=== PATIENT | female | born 1990 | race African-American/Black ===

== ENCOUNTER 2016-09-21 12:08 | Inpatient (IN) ==
[2016-09-21] MEDS ORDERED: SODIUM CHLORIDE 0.9% 1,000 ML IV STA (12:42)
[2016-09-21] MEDS ORDERED: ONDANSETRON 4 MG/2 ML VIAL IV STA (13:03)
[2016-09-21 13:04] LABS: Basophils % 0.5 % (0.0-0.8); Eosinophils % 0.5 % (0.00-10.9); Hemoglobin 14.3 GM/DL (12.0-16.0); Immature Granulocytes % 0.2 %; Immature Granulocytes Absolute 0.01 #; Lymphocytes % 32.8 % (21.3-54.2); Mean Corpuscular Hemoglobin 30 PG (27-34); Mean Corpuscular Volume 88.4 FL (87-102); Mean Platelet Volume 10.4 FL (9.6-12.0); Monocytes # 0.9 10*3/uL (0.11-0.8); Monocytes % 14.4 % (1.7-12.7); Neutrophils # 3.2 10*3/uL (1.4-7.4); Neutrophils % 51.6 % (38.7-73.9); Platelet Count 330 10*3/uL (130-400); Red Blood Count 4.75 10*6/uL (3.8-5.5); Red Cell Distribution Width 13.2 % (9.3-17.3); White Blood Count 6.1 10*3/uL (4.5-13.71)
[2016-09-21] MEDS ORDERED: ONDANSETRON 4 MG/2 ML VIAL ONE (13:04)
[2016-09-21 13:20] LABS: PT Patient Result 10.1 SECS; Partial Thromboplastin Time 29.7 SECS (0-40)
[2016-09-21 13:26] LABS: Albumin 3.6 G/DL (3.4-5.0); Bilirubin,Total 6.5 MG/DL (0.2-1.0); Calcium 8.9 MG/DL (8.5-10.1); Lactic Acid 0.7 MMOL/L (0.4-2.0); Osmolality,Calculated 278.3 MOS/KG (273-304); Potassium 3.5 MMOL/L (3.5-5.1); Total Protein 8.5 G/DL (6.4-8.3)
--- NOTE | 2016-09-21 13:46 | Ultrasound Report ---
History is abdominal pain and jaundice There is gallbladder sludge with multiple small gallstones present. Gallbladder wall thickness is normal Common bile duct measures up to 8 mm. The distal common bile duct is obscured by bowel gas Hepatic size and echotexture is normal No right renal hydronephrosis seen The visualized pancreas and proximal IVC and aorta are normal in size. Portions of pancreatic head and tail obscured by bowel gas Impression: 1. Cholelithiasis 2. Dilatation of the common bile duct for a patient of this age raising question of distal common duct stone. The distal common duct is obscured. Correlation with laboratory values is necessary PROCEDURE INTERPRETED AT [facility] DEPARTMENT OF RADIOLOGY Final Report Signed by: Dr. Alyse Arreola
[2016-09-21 14:01] LABS: Apearance,Urine CLEAR (Clear); Bilirubin,Urine Negative (Negative); Blood, Urine Moderate mg/dL (Negative); Glucose,Urine (UA) Negative (Negative); Ketones,Urine Negative (Negative); Nitrite,Urine Negative (Negative); Protein,Urine Negative; RBC,Urine <1 /HPF (0-4); Squamous Epithelial Cell,Urine Occasional /HPF (0-10); Urine Color Yellow (Yellow); Urine Specific Gravity 1.009 (1.001-1.035); Urine Urobilinogen < 2.0 EU/DL (0.2-1.0); WBC,Urine 1 /HPF (0-6)
[2016-09-21 14:11] LABS: Barbiturates Screen,Urine Negative (Negative); Benzodiazepines Screen,Urine Negative (Negative); Cannabinoid Screen,Urine Negative (Negative); Opiate Screen,Urine Negative (Negative); Phencyclidine Screen,Urine Negative (Negative)
[2016-09-21] MEDS ORDERED: MORPHINE 2 MG/1 ML SYRINGE IV STA (16:52)
--- NOTE | 2016-09-21 16:57 | Emergency Department Note ---
Cristobal Hoskins Brittany, am scribing for, and in the presence of, Jorge A Taylor Jr., MD 12:46. Brandon Hoskins Marvin Jr., MD, personally performed the services described in this documentation, ascribed by Allyn Jain in my presence, and it is both accurate and complete [id number] . 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 Mejia's office for having abnormal lab work, states her liver enyzmes were elevated, states " my eyes were yellow" , patient has no lab work with her at time of triage, patient is hurting in entire abd., + nausea Mode of Arrival: Ambulatory Limitations: No Limitations Source: Patient, RN Notes Reviewed - History of Present Illness HPI Narrative: Patient is a 25 y/o black female presenting to the ED for further evaluation of elevated liver enzymes. Patient reports that she has been having abdominal pain for about a month now and went to see primary care provider, Dr. Mejia this morning. She notes that Dr. Mejia called her and instructed her to present to the ED because she had elevated liver enzymes. Patient describes abdominal pain at current, as a mild sharp pain that begins in the right upper abdomen, "shooting" into the lower abdomen and left upper abdomen, radiating into her back. Patient notes having some associated nausea, vomiting, and intermittent diarrhea with this. Patient reports that she has had fever, but notes last fever was about a week ago and was 101 at the highest, but has had none at present. Patient reports taking Aspirin, but denies taking any Tylenol. Patient denies use of alcohol, tobacco, or recreational drugs. Patient has a past medical history of hypertension and dyslipidemia. No other complaint/pain in the ED. Date of Last Menstrual Period: 1 week ago Allergies/Adverse Reactions: Allergies Allergy/AdvReac Type Severity Reaction Status Date / Time penicillin G Allergy RASH Verified 09/21/16 12:24 Home Medications: Home Medications Medication Instructions Recorded Confirmed Type Losartan/Hydrochlorothiazide 1 each PO DAILY 04/14/16 09/21/16 History [Losartan-Hctz 100-25 mg Tab] Review of System - Review of System 12 point system: reviewed and no additional remarkable complaints except as stated - Review of System Constitutional: Present: fever Gastrointestinal: Present: abdominal pain, nausea, vomiting, diarrhea Medical,Surgical,& Family Hx - Medical History Cardio: History of: Hypertension Endocrine: History of: Dyslipidemia Gastrointestinal: History of: GI Problems (peptic ulcer disease) Reproductive: History of: Ovarian Cysts - Surgical History Reproductive Surgeries: Surgical HX of;: Section - Social History Smoking Status: Never smoker Frequency of Alcohol Use: None Type of Drug Use: None Exam Physical Examination: General: Well-developed well-nourished, no apparent distress. Head: Normocephalic, atraumatic. Eyes: PERRLA, EOMI. sclera icterus noted Nose: No obvious acute deformities or discharge. Mouth: No obvious acute injury. Neck: Full range of motion without obvious pain. No midline tender to palpation. Lymphatic: no significant lymphadenopathy noted. Lungs: Clear to auscultation bilaterally, normal and equal air movement bilaterally, no obvious rales or wheezing. Heart: regular rate and rhythm, no obvious mummers. Abdomen: Right upper quadrant with moderate tender to palpation nondistended, normal active bowel sounds. Skin: No obivous acute lesions noted Musculoskeletal: No gross deformities. Neurological: No focal findings, cranial nerves II through XII grossly normal. Psychiatric: Appropriate mood.. : Deferred Vital Signs: Vital Signs Temperature 97.5 F L 09/21/16 12:20 Pulse Rate 64 09/21/16 13:15 Respiratory Rate 20 09/21/16 12:20 Blood Pressure 177/111 09/21/16 13:15 O2 Sat by Pulse Oximetry 99 09/21/16 13:15 Course Course Narrative: Differential diagnosis: Liver failure secondary to medication, cirrhosis, idiopathic, gallbladder disease, mass - Reevaluation(s) Reevaluation #1: Discussed with Dr. Nguyen who accepts this patient for admission. He says keep her n.p.o., IV fluids, pain medicine, no antibiotics needed at this time. Time: 16:50 Results - Labs CBC & BMP: 09/21/16 13:00 09/21/16 13:00 Lab Results: I have reviewed the patients labs Labs: Laboratory Tests 09/21/16 13:00 WBC 6.1 RBC 4.75 Hgb 14.3 Hct 42.0 MCV 88.4 MCH 30 MCHC 34.0 RDW 13.2 Plt Count 330 MPV 10.4 Neut % (Auto) 51.6 Lymph % (Auto) 32.8 Marshall % (Auto) 14.4 H Eos % (Auto) 0.5 Baso % (Auto) 0.5 Neut # (Auto) 3.2 Lymph # (Auto) 2.0 Marshall # (Auto) 0.9 H Eos # (Auto) 0.0 Baso # (Auto) 0.0 Immature Gran % 0.2 Nucleated RBC % 0.0 Immature Gran # 0.01 Nucleated RBCs # 0.00 Laboratory Tests 09/21/16 13:00 INR 1.0 PT Patient/Control Mix 10.1 Circ Anticoag PTT 29.7 Laboratory Tests 09/21/16 09/21/16 13:00 13:00 Sodium 141 Potassium 3.5 Chloride 105 Carbon Dioxide 28 Anion Gap 11.5 BUN 7 Creatinine 0.90 GFR Calculation 119 BUN/Creatinine Ratio 7.00 Glucose 90 Calculated Osmolality 278.3 Lactic Acid 0.7 Calcium 8.9 Total Bilirubin 6.50 H AST 210 H ALT 533 H Alkaline Phosphatase 127 H Total Protein 8.5 H Albumin 3.6 Globulin 4.9 H Albumin/Globulin Ratio 0.7 L Lipase 23488.0 H Laboratory Tests 09/21/16 12:46 Urine Color Yellow Urine Appearance Clear Urine pH 7.0 Ur Specific Ulman 1.009 Urine Protein Negative Urine Glucose (UA) Negative Urine Ketones Negative Urine Blood Moderate Urine Nitrate Negative Urine Bilirubin Negative Urine Urobilinogen < 2.0 H Urine Leukocytes Negative Urine RBC <1 Urine WBC 1 Ur Squamous Epith Cells Occasional Laboratory Tests 09/21/16 12:46 Urine Opiates Screen Negative Ur Barbiturates Screen Negative Ur Phencyclidine Scrn Negative U Amphetamine/Methamph Negative U Benzodiazepines Scrn Negative U Cocaine Metab Screen Negative U Cannabinoids Screen Negative - Diagnostic Findings Procedure: Ultrasound: report reviewed by me, image reviewed by me (Gallbladder : 1. Cholelithiasis; 2. Dilation of the common bile duct for a patient this age raising question of distal common duct stone. The distal common duct is obscurred. Correlation with laboratory values is necessary. I personally reviewed this ultrasound also) Disposition Clinical Impression: Cholelithiasis, Gallstone pancreatitis Case discussed with: patient, patient's family Disposition: Still a Patient Condition: Stable Time of Disposition: 16:51
--- NOTE | 2016-09-21 18:02 | General Surg History&Physical ---
Assessment and Plan (1) Cholelithiasis Status: Acute Assessment and plan: This patient has cholelithiasis and gallstone pancreatitis. She will be admitted for IV fluids, bowel rest, and trending her of her LFTs. I'll also place her on Zosyn because of her tenderness on exam and concern for cholecystitis. I discussed her care with Dr. Busch who is on-call this weekend and I would prefer a preoperative ERCP on her given her bile duct dilation in elevation of her bilirubin but we will try to wait for her pancreatitis resolved with possible prior to doing any procedures. She is stable and has no evidence of cholangitis. Current Visit: Yes History of Present Illness Chief complaint: abdominal pain History of present illness: Ms. Gaston is a 25 year old female who has had one month of right upper quadrant midepigastric pain that radiates through the back with associated nausea and vomiting. Her eyes also turned yellow and she reports some acholic stools or tea-colored urine over the past week. She denies any history of alcohol use. She does have a history of reflux and has had an esophageal dilation done by Dr. Busch in the past and the last one was a while ago. She has a bilirubin of 6.5 with a normal white blood cell count a lipase of 13, 000 with stones on her ultrasound and dilation of her bile duct. Home Medications Medication Instructions Recorded Confirmed Type Losartan/Hydrochlorothiazide 1 each PO DAILY 04/14/16 09/21/16 History [Losartan-Hctz 100-25 mg Tab] Allergies Allergy/AdvReac Type Severity Reaction Status Date / Time penicillin G Allergy RASH Verified 09/21/16 12:24 Medical,Surgical,& Family Hx - Medical History Cardio: History of: Hypertension Endocrine: History of: Dyslipidemia Gastrointestinal: History of: GI Problems (peptic ulcer disease) Reproductive: History of: Ovarian Cysts - Surgical History Reproductive Surgeries: Surgical HX of;: Section - Social History Smoking Status: Never smoker Frequency of Alcohol Use: None Type of Drug Use: None Exam - Constitutional General appearance: no acute distress, morbidly obese - Head Head exam: Present: normal inspection, normocephalic - Eye Eye exam: Present: EOMI, scleral icterus Pupils: Present: LILIANE - ENT ENT exam: Present: normal exam Mouth exam: Present: normal external inspection, normal voice - Neck Neck exam: Present: normal inspection, trachea midline - Respiratory Respiratory exam: Present: clear to auscultation bilaterally. Absent: accessory muscle use, chest wall tenderness - Cardiovascular Cardiovascular exam: Present: RRR. Absent: systolic murmur, tachycardia - GI/Abdominal GI/Abdominal exam: Present: normal bowel sounds, Rust's sign, tenderness, soft. Absent: rebound - Extremities Exam Extremities exam: Present: normal inspection, normal capillary refill - Back Exam Back exam: Present: normal inspection - Neurological Exam Neurological exam: Present: alert, oriented X3 Speech: Present: normal - Skin Skin exam: Present: normal color, warm - Constitutional Constitutional: Present: as per HPI - EENT Nose, mouth and throat: Present: as per HPI - Cardiovascular Cardiovascular: Present: as per HPI - Respiratory Respiratory: Present: as per HPI - Gastrointestinal Gastrointestinal: Present: as per HPI - Genitourinary Genitourinary: Present: as per HPI - Musculoskeletal Musculoskeletal: Present: as per HPI - Neurological Neurological: Present: as per HPI - Endocrine Endocrine: Present: as per HPI Hematologic/Lymphatic: Present: as per HPI Results - Labs CBC & BMP: 09/21/16 13:00 09/21/16 13:00 - Diagnostic Findings Procedure: Ultrasound: report reviewed by me
[2016-09-21] MEDS: PIPERACILLIN/TAZOBACTAM 3,375 MG in SODIUM CHLORIDE 0.9% 100 ML IV SCH (20:45)
[2016-09-21] MEDS: MORPHINE 2 MG/1 ML SYRINGE IV PRN (20:46)
[2016-09-21] MEDS: DEXTROSE 5% NACL 0.45% 1,000 ML IV SCH (20:51)
[2016-09-21] MEDS: ONDANSETRON 4 MG/2 ML VIAL IV PRN (21:37)
[2016-09-22 03:37] LABS: Basophils % 0.5 % (0.0-0.8); Eosinophils # 0.1 10*3/uL (0.0-0.87); Eosinophils % 0.8 % (0.00-10.9); Hematocrit 40.3 VOL% (35.7-47.0); Hemoglobin 13.4 GM/DL (12.0-16.0); Immature Granulocytes % 0.3 %; Immature Granulocytes Absolute 0.02 #; Lymphocytes # 2.5 10*3/uL (1.4-4.0); Lymphocytes % 42.2 % (21.3-54.2); Mean Corpuscular HGB Conc 33.3 GM/DL (32-36); Mean Corpuscular Hemoglobin 29 PG (27-34); Mean Corpuscular Volume 88.4 FL (87-102); Mean Platelet Volume 10.3 FL (9.6-12.0); Monocytes # 0.9 10*3/uL (0.11-0.8); Monocytes % 14.6 % (1.7-12.7); Neutrophils # 2.5 10*3/uL (1.4-7.4); Neutrophils % 41.6 % (38.7-73.9); Platelet Count 291 10*3/uL (130-400); Red Blood Count 4.56 10*6/uL (3.8-5.5); Red Cell Distribution Width 13.1 % (9.3-17.3)
[2016-09-22 03:46] LABS: PT Patient Result 10.5 SECS; Partial Thromboplastin Time 30.6 SECS (0-40)
[2016-09-22] MEDS: DEXTROSE 5% NACL 0.45% 1,000 ML IV SCH ×3 (04:05→20:30)
[2016-09-22 04:11] LABS: Albumin 3.2 G/DL (3.4-5.0); Bilirubin,Direct 1.8 MG/DL (0.0-0.20); Bilirubin,Total 3.9 MG/DL (0.2-1.0); Calcium 8.4 MG/DL (8.5-10.1); Osmolality,Calculated 279.1 MOS/KG (273-304); Potassium 3.3 MMOL/L (3.5-5.1); Total Protein 7.1 G/DL (6.4-8.3)
[2016-09-22] MEDS: PIPERACILLIN/TAZOBACTAM 3,375 MG in SODIUM CHLORIDE 0.9% 100 ML IV SCH ×3 (05:00→20:27)
[2016-09-22] MEDS: LOSARTAN/HCTZ 50-12.5 MG TABLET PO SCH (10:08)
--- NOTE | 2016-09-22 13:15 | General Surgery Progress Note ---
Assessment and Plan (1) Cholelithiasis Status: Acute Assessment and plan: This patient has biliary pancreatitis and suspected choledocholithiasis. Her labs are improving so we will give her clear liquids today and trend her lab work over the weekend. I would prefer an ERCP prior to laparoscopic cholecystectomy to clear her bile duct of Dr. Busch agrees that this is indicated. Current Visit: Yes Subjective Patient reports: Present: no new complaints, feels better, still having pain, pain is less, afebrile. Absent: nausea, vomiting, shortness of breath Exam - Constitutional Vitals: Period Temp Pulse Resp BP Sys/Corbett Pulse Ox Last 24 Hr 97.9 F-98.6 F 50-78 16-20 114-145/62-86 96-100 General appearance: no acute distress, morbidly obese - Head Head exam: Present: normal inspection, normocephalic - Eye Eye exam: Present: EOMI, scleral icterus Pupils: Present: LILIANE - ENT ENT exam: Present: normal exam Mouth exam: Present: normal external inspection, normal voice - Neck Neck exam: Present: normal inspection, trachea midline - Respiratory Respiratory exam: Present: clear to auscultation bilaterally. Absent: accessory muscle use, chest wall tenderness - Cardiovascular Cardiovascular exam: Present: RRR. Absent: systolic murmur, tachycardia - GI/Abdominal GI/Abdominal exam: Present: tenderness (mild mid-abdominal tenderness on exam), soft - Extremities Exam Extremities exam: Present: normal inspection, normal capillary refill - Back Exam Back exam: Present: normal inspection - Neurological Exam Neurological exam: Present: alert, oriented X3 Speech: Present: normal - Skin Skin exam: Present: normal color, warm Results - Labs CBC & BMP: 09/22/16 03:06 09/22/16 03:06
--- NOTE | 2016-09-22 14:47 | Gastrointestinal Consult Note ---
Assessment and Plan (1) Gallstone pancreatitis Status: Acute Assessment and plan: Young female admitted with gallstone pancreatitis which clinically does not appear to be severe at present. She has no signs of cholangitis currently. Plan ERCP with possible common bile duct sphincterotomy and stone removal dependent on findings. Discussed procedure with her and family today. Would plan to do this tomorrow or Saturday. Keep her n.p.o. after midnight tonight. Current Visit: Yes History of Present Illness Chief complaint: Abdominal pain History of present illness: Ms. Gaston is a 25 year old female admitted with gallstone pancreatitis. She she is admitted after onset of upper abdominal pain radiating into her mid back 2 days ago which was severe. She states that she has had similar intermittent pain for over a month with associated nausea. Her weight has been stable. On admission, she had elevated liver tests with total bilirubin 6.5 and dilated common bile duct noted on ultrasound imaging with cholelithiasis also noted. Her lipase was markedly elevated also. Today, her pain is improved though still present off and on. She states that she has not required any pain medication today. Total bilirubin has fallen to 3.9 with transaminases also improved. Home Medications Medication Instructions Recorded Confirmed Type Losartan/Hydrochlorothiazide 1 each PO DAILY 04/14/16 09/22/16 History [Losartan-Hctz 100-25 mg Tab] Allergies Allergy/AdvReac Type Severity Reaction Status Date / Time penicillin G Allergy RASH Verified 09/21/16 12:24 Medical,Surgical,& Family Hx - Medical History Cardio: History of: Hypertension Psychological: History of: Bipolar Disorder (does not take medications for this) Endocrine: History of: Dyslipidemia Respiratory: History of: Respiratory Problems (sleep apnea) Gastrointestinal: History of: GI Problems (peptic ulcer disease) Musculoskeletal: History of: Herniated Disk Reproductive: History of: Ovarian Cysts - Surgical History Reproductive Surgeries: Surgical HX of;: Section - Family History Family History: Reports;: Family Cancer (grandmother), Family Diabetes (mother, grandmother), Family Hypertension (mother, aunt), Family Stroke (grandfather) - Social History Smoking Status: Never smoker Frequency of Alcohol Use: None Type of Drug Use: None - Constitutional Constitutional: Absent: chills, fever(s) - EENT Nose, mouth and throat: Absent: dysphagia, epistaxis - Cardiovascular Cardiovascular: Absent: chest pain at rest, chest pain with activity, orthopnea , palpitations, PND - Respiratory Respiratory: Absent: cough, dyspnea - Gastrointestinal Gastrointestinal: Present: as per HPI. Absent: hematemesis, hematochezia - Genitourinary Genitourinary: Absent: dysuria, flank pain, hematuria - Neurological Neurological: Absent: abnormal speech, focal weakness - Hematologic/Lymphatic Hematologic/Lymphatic: Absent: easy bleeding, easy bruising Exam - Constitutional Vitals: Period Temp Pulse Resp BP Sys/Corbett Pulse Ox Last 24 Hr 97.9 F-98.6 F 50-78 16-20 114-145/62-86 96-100 General appearance: no acute distress, over weight - Eye Eye exam: Present: EOMI, scleral icterus - Respiratory Respiratory exam: Present: clear to auscultation bilaterally. Absent: wheezes - Cardiovascular Cardiovascular exam: Present: regular rate and rhythm. Absent: gallop, rubs - GI/Abdominal GI/Abdominal exam: Present: hypoactive bowel sounds, tenderness (Epigastric and right upper quadrant tenderness present), soft. Absent: distended, organomegaly - Neurological Exam Neurological exam: Present: alert, oriented X3, CN II-XII intact. Absent: motor sensory deficit - Psychiatric Psychiatric exam: Present: normal affect, normal mood - Skin Skin exam: Present: warm, dry Results - Labs CBC & BMP: 09/22/16 03:06 09/22/16 03:06 Lab Results: I have reviewed the past 24 hour labs
[2016-09-22] MEDS: MORPHINE 2 MG/1 ML SYRINGE IV PRN (18:24)
[2016-09-22] MEDS: ONDANSETRON 4 MG/2 ML VIAL IV PRN (20:21)
[2016-09-23] MEDS: PIPERACILLIN/TAZOBACTAM 3,375 MG in SODIUM CHLORIDE 0.9% 100 ML IV SCH ×3 (03:37→21:50)
[2016-09-23] MEDS: DEXTROSE 5% NACL 0.45% 1,000 ML IV SCH ×4 (03:38→22:10)
[2016-09-23 03:50] LABS: Albumin 3.1 G/DL (3.4-5.0); Bilirubin,Total 5.1 MG/DL (0.2-1.0); Calcium 8.7 MG/DL (8.5-10.1); Osmolality,Calculated 280.1 MOS/KG (273-304); Potassium 3.2 MMOL/L (3.5-5.1); Total Protein 7.3 G/DL (6.4-8.3)
[2016-09-23] MEDS: LOSARTAN/HCTZ 50-12.5 MG TABLET PO SCH (08:40)
--- NOTE | 2016-09-23 11:29 | Gastrointestinal Progress Note ---
Assessment and Plan (1) Gallstone pancreatitis Status: Acute Assessment and plan: Young female admitted with gallstone pancreatitis which clinically does not appear to be severe at present. She has no signs of cholangitis currently. Plan ERCP with possible common bile duct sphincterotomy and stone removal dependent on findings. Discussed procedure with her and family today. Would plan to do this tomorrow or Saturday. Keep her n.p.o. after midnight tonight. 09/23 clinically improved but still with significant liver test elevation, total bilirubin 5.1 today. Plan ERCP today. Risks and benefits discussed including pancreatitis, bleeding, and anesthesia risks. She agrees to proceed. Current Visit: Yes Gastroenterology - PN: Subj Interval history: Patient still with some upper abdominal pain but improved. Denies nausea. Exam (Progress Note) - Constitutional Vitals: Period Temp Pulse Resp BP Sys/Corbett Pulse Ox Last 24 Hr 97.5 F-98.8 F 60-72 17-20 110-148/56-90 97-99 General appearance: no acute distress, over weight - Eye Pupils: Present: normal accommodation - Respiratory Respiratory exam: Present: clear to auscultation bilaterally. Absent: wheezes - Cardiovascular Cardiovascular exam: Present: regular rate and rhythm. Absent: gallop, rubs - GI/Abdominal GI/Abdominal exam: Present: normal bowel sounds, tenderness, soft. Absent: distended - Extremities Exam Extremities exam: Absent: calf tenderness, edema - Neurological Exam Neurological exam: Present: alert, oriented X3, CN II-XII intact. Absent: motor sensory deficit - Psychiatric Psychiatric exam: Present: normal affect, normal mood - Skin Skin exam: Present: warm, dry Results - Labs CBC & BMP: 09/22/16 03:06 09/23/16 02:53 Lab Results: I have reviewed the past 24 hour labs
[2016-09-23] MEDS ORDERED: FAMOTIDINE 20 MG/2 ML VIAL IV ONE (11:39)
[2016-09-23] MEDS: POTASSIUM CHLORIDE RIDER 10 MEQ in PREMIX 1 EACH IV SCH (12:01)
[2016-09-23] MEDS ORDERED: MIDAZOLAM 2 MG/2 ML VIAL ONE (12:09)
[2016-09-23] MEDS ORDERED: fentaNYL 100 MCG/2 ML VIAL ONE (12:09)
[2016-09-23] MEDS: SODIUM CHLORIDE 0.9% 500 ML IV SCH (12:21)
[2016-09-23] MEDS ORDERED: SODIUM CHLORIDE 0.9% 1,000 ML IV SCH (12:30)
[2016-09-23] MEDS ORDERED: PROPOFOL 200 MG/20 ML VIAL IV ONE (12:46)
[2016-09-23] MEDS ORDERED: LIDOCAINE 2% 5 ML VIAL ONE (12:46)
--- NOTE | 2016-09-23 13:34 | History and Physical Update ---
History and Physical Update - History and Physical H&P was reviewed, the patient examined and there: are no changes in the patients condition since last H&P was completed. - Physical Exam Mental Status: alert and oriented Heart: regular rate and rhythm Lung: clear to auscultation Abdomen: within normal limits Vitals: within normal limits
--- NOTE | 2016-09-23 13:36 | Anesthesia ---
Anesthesia Post OP - Post Ansesthetic Evaluation Patient seen in post op: Yes Resp: within normal limits CV: within normal limits Mental: within normal limits Temp: within normal limits [id number]: within normal limits Nausea and Vomiting: within normal limits Pain: within normal limits
[2016-09-23] MEDS ORDERED: GLUCAGON 1 MG VIAL ONE (13:40)
--- NOTE | 2016-09-23 13:44 | General Surgery Progress Note ---
Assessment and Plan (1) Cholelithiasis Status: Acute Assessment and plan: Dr. Busch performed ERCP today with stone removal from the common bile duct and sphincterotomy. The patient's bilirubin had gone back up today but her lipase continued to improve slowly. She actually got worse with fluid intake yesterday by mouth so we will hold her diet today and repeat her labs tomorrow in anticipation of possible laparoscopic cholecystectomy tomorrow. Current Visit: Yes Subjective Patient reports: Present: still having pain, nausea, afebrile. Absent: vomiting Exam - Constitutional Vitals: Period Temp Pulse Resp BP Sys/Corbett Pulse Ox Last 24 Hr 97.5 F-98.8 F 60-94 16-20 110-148/56-94 97-100 General appearance: no acute distress, morbidly obese - Head Head exam: Present: normal inspection, normocephalic - Eye Eye exam: Present: EOMI, scleral icterus Pupils: Present: LILIANE - ENT ENT exam: Present: normal exam Mouth exam: Present: normal external inspection, normal voice - Neck Neck exam: Present: normal inspection, trachea midline - Respiratory Respiratory exam: Present: clear to auscultation bilaterally. Absent: accessory muscle use, chest wall tenderness - Cardiovascular Cardiovascular exam: Present: RRR. Absent: systolic murmur, tachycardia - GI/Abdominal GI/Abdominal exam: Present: hypoactive bowel sounds, tenderness, soft. Absent: Rust's sign, rebound - Extremities Exam Extremities exam: Present: normal inspection, normal capillary refill - Back Exam Back exam: Present: normal inspection - Neurological Exam Neurological exam: Present: alert, oriented X3 Speech: Present: normal - Skin Skin exam: Present: normal color, warm Results - Labs CBC & BMP: 09/22/16 03:06 09/23/16 02:53
--- NOTE | 2016-09-23 13:47 | Operative Note ---
Date of procedure: 09/23/16 Pre-op diagnosis: Gallstone pancreatitis, obstructive jaundice Procedure: Procedure: Endoscopic retrograde cholangiopancreatography with common bile duct sphincterotomy and common bile duct stone removal Brief clinical abstract: Patient is a 25-year-old female admitted with abdominal pain and found to have acute pancreatitis with gallstones. She had common bile duct dilation on ultrasound. Her total bilirubin is 5.1 today. She has mild epigastric pain today but is actually improved clinically in the last couple of days. Procedure findings: After informed consent was obtained, patient was placed in the prone position. Diagnostic video duodena scope was inserted in the upper esophagus and blind fashion with no resistance encountered. Esophageal mucosa appeared normal with squamocolumnar junction sharply demarcated above a small hiatal hernia. No esophageal stricture was seen. Stomach was examined including retraction of the cardia and fundus with no abnormality seen. The pyloric channel and duodenal bulb were normal. Ampulla was bulging with a visible stone noted within the ampullary opening. There was also bulging in the duodenal wall extending above the ampulla. Sphincterotome was used and initially pancreatogram obtained with head neck and body opacified showing no abnormalities. I intentionally did not fill the remainder of the pancreatic duct. Cannulation of the common bile duct was somewhat difficult. We had a submucosal injection occur with the third or fourth attempt to cannulate using a 0.035 inch guidewire. 2 small stones, estimated 5 mm diameter each, still passed into the duodenum with manipulation of the ampullary opening and before biliary cannulation. Sphincterotome was withdrawn and needle knife was used with needle knife fistulotomy performed approximately 5 cm above the ampulla along biliary orientation with an approximately 5 mm opening made. Large amount of dark colored bile drained into the duodenum. The needle knife was removed and sphincterotome was advanced through the opening and entered the common bile duct with deep cannulation achieved. Biliary tree was filled with contrast. There was mild intrahepatic dilation. Common bile duct and common hepatic duct were dilated to 12-14 mm maximally. Several filling defects were noted in the distal common bile duct. The gallbladder did not appear to fill with contrast. Sphincterotome was removed and an 12 mm occlusion balloon advanced into the proximal common hepatic duct. 3 separate passes were made with the balloon dragging at least 2 further small similar sized stones into the duodenum. An occlusion cholangiogram was obtained afterwards with no residual filling defects noted. Excellent drainage of bile and contrast were noted to the sphincterotomy opening. The endoscope was then removed and patient appeared to tolerate the procedure well. Impression: #1 choledocholithiasis-status post endoscopic removal by balloon with common bile duct sphincterotomy performed #2 biliary dilatation related to #1 #3 normal-appearing partial pancreatogram Recommendations: Proceed with cholecystectomy as planned. F F Anesthesia: MAC Surgeon / Physician: Chi Busch Estimated blood loss: minimal Specimens: none sent Condition: stable Disposition: post procedure unit Results - Labs CBC & BMP: 09/22/16 03:06 09/23/16 02:53 Discharge Plan - Discharge Medications No Action Losartan/Hydrochlorothiazide [Losartan-Hctz 100-25 mg Tab] 1 each PO DAILY - Follow Up or Referral - Forms/Instructions
[2016-09-23] MEDS: ONDANSETRON 4 MG/2 ML VIAL IV PRN (14:36)
[2016-09-23] MEDS ORDERED: POTASSIUM CHLORIDE RIDER 10 MEQ in PREMIX 1 EACH IV ONE (19:30)
[2016-09-24] MEDS: PIPERACILLIN/TAZOBACTAM 3,375 MG in SODIUM CHLORIDE 0.9% 100 ML IV SCH ×4 (04:50→13:12)
[2016-09-24 06:03] LABS: Basophils % 0.3 % (0.0-0.8); Eosinophils % 0.5 % (0.00-10.9); Hematocrit 39.3 VOL% (35.7-47.0); Hemoglobin 13.3 GM/DL (12.0-16.0); Immature Granulocytes % 0.2 %; Immature Granulocytes Absolute 0.01 #; Lymphocytes # 2.6 10*3/uL (1.4-4.0); Lymphocytes % 39.3 % (21.3-54.2); Mean Corpuscular HGB Conc 33.8 GM/DL (32-36); Mean Corpuscular Hemoglobin 30 PG (27-34); Mean Corpuscular Volume 87.9 FL (87-102); Mean Platelet Volume 10.6 FL (9.6-12.0); Monocytes # 0.7 10*3/uL (0.11-0.8); Monocytes % 10.6 % (1.7-12.7); Neutrophils # 3.2 10*3/uL (1.4-7.4); Neutrophils % 49.1 % (38.7-73.9); Platelet Count 298 10*3/uL (130-400); Red Blood Count 4.47 10*6/uL (3.8-5.5); White Blood Count 6.5 10*3/uL (4.5-13.71)
[2016-09-24 06:46] LABS: Albumin 3.1 G/DL (3.4-5.0); Bilirubin,Total 3.5 MG/DL (0.2-1.0); Calcium 8.9 MG/DL (8.5-10.1); Osmolality,Calculated 278.3 MOS/KG (273-304); Potassium 3.4 MMOL/L (3.5-5.1); Total Protein 7.4 G/DL (6.4-8.3)
--- NOTE | 2016-09-24 07:17 | Fluoroscopy Report ---
Referring Physician: Darshan Busch Exam: FL fluoroscopy <1hr Date: September 23, 2016 Reason: Gallstone pancreatitis, elevated liver tests Comparison: Gallbladder ultrasound September 21, 2016 Findings: 16 images of the abdomen were provided after performance of an ERCP. Fluoroscopy time was 4 minutes, and 31 cc of contrast was used. Images demonstrate dilatation of the common bile duct. Filling defects were seen within the common bile duct, and sphincterotomy and balloon sweep were performed. The pancreatic duct and intrahepatic bile ducts appear normal in size on the provided images. Impression: Images are presumed satisfactory for the purposes of the procedure. PROCEDURE INTERPRETED AT [facility] DEPARTMENT OF RADIOLOGY Final Report Signed by: Dr. Kelechi Zayas
[2016-09-24] MEDS: DEXTROSE 5% NACL 0.45% 1,000 ML IV SCH ×3 (07:44→21:33)
[2016-09-24] MEDS: POTASSIUM CHLORIDE RIDER 10 MEQ in PREMIX 1 EACH IV SCH (07:45)
[2016-09-24] MEDS ORDERED: FAMOTIDINE 20 MG/2 ML VIAL IV ONE (07:48)
[2016-09-24] MEDS ORDERED: LIDOCAINE 1%/EPI INJ 20 ML VIAL ONE (08:08)
[2016-09-24] MEDS ORDERED: TISSUE ADHESIVE 1 EACH APPLICATOR TOP ONE (08:08)
[2016-09-24] MEDS: LACTATED RINGERS 1,000 ML IV SCH (08:53)
[2016-09-24] MEDS: LOSARTAN/HCTZ 50-12.5 MG TABLET PO SCH (08:53)
[2016-09-24] MEDS ORDERED: PROPOFOL 200 MG/20 ML VIAL IV ONE (10:20)
[2016-09-24] MEDS ORDERED: LIDOCAINE 2% 5 ML VIAL ONE (10:20)
[2016-09-24] MEDS ORDERED: ONDANSETRON 4 MG/2 ML VIAL ONE ×2 (10:20→12:01)
--- NOTE | 2016-09-24 11:49 | Operative Note ---
Date of procedure: 09/24/16 Pre-op diagnosis: cholecystitis with choledocholithiasis status post ERCP with stone removal Post-op diagnosis: same Procedure: Preoperative diagnosis Cholecystitis with choledocholithiasis and prior ERCP with sphincterotomy and stone removal Biliary pancreatitis, resolved Postoperative diagnosis Same Procedures performed 1. Laparoscopic cholecystectomy with intraoperative cholangiogram 22 modifier Findings Acute inflammation the gallbladder was present in the cystic duct was stuck to the portal triad structures initially. A 22 modifier was added to this case Cornel took more than twice usual length of time because of the amount of inflammation and scarring in this area. The cholangiogram was performed after critical view of safety was obtained and revealed no residual filling defects in the bile ducts and brisk flow into the duodenum with good visualization of the intrahepatic biliary radicals and cholangiogram was performed through the cystic duct remnant. The gallbladder was removed from the gallbladder fossa and there was no residual bleeding. Complications None apparent Specimen Gallbladder Anesthesia GETA Blood loss 25 mL Indications Cholecystitis with choledocholithiasis and biliary pancreatitis treated with ERCP and sphincterotomy and stone removal Description of procedure The patient was taken to the operating room and transferred to the operating table in the supine position. Pressure points were padded and SCDs were placed for bilateral lower extremities. General endotracheal anesthesia was administered. The abdomen was prepped with chlorhexidine and draped sterilely. Preoperative antibiotics were administered, and a timeout was performed. The abdomen was entered in a supraumbilical location of the Veress needle. Local anesthetic was administered and a 5 mm skin incision was made with an 11 blade scalpel. A penetrating towel clip was used to grasp the umbilical stalk and the Veress needle was used to enter the peritoneal cavity. Aspiration was negative. Saline drop test confirmed intraperitoneal location. The abdomen was insufflated to 15 mmHg with an initial insufflation pressure of 4 mmHg. The Veress needle was removed and a 5 mm trocar was placed bluntly. Laparoscopy was performed which revealed no evidence of Veress needle or trocar injury. The patient was placed in reverse Trendelenburg and left side without position. After local anesthetic was administered an additional 11 mm midepigastric trocar and 2 right subcostal 5 mm trochars were placed. The gallbladder was grasped at the fundus and infundibulum and there was evidence of significant inflammation of the gallbladder. The gallbladder was stuck to the duodenum and the adhesions were taken down sharply. The cystic plate and infundibulum was also stuck to the portal triad structures and this took quite a bit of additional time to dissect away to safely perform the procedure. This lengthened the procedure by more than twice usual length of time. Eventually the cystic plate peritoneum was dissected and the critical view of safety was obtained. A cystic ductotomy was made with a cholangiogram catheter placed through the ductotomy and clipped in place. The initial plans and spilled bile and contrast out into the perineal cavity so was repositioned with a lower cystic ductotomy site and the repeat cholangiogram revealed normal findings. The cystic duct remnant was cannulated and there was good flow into the bowel as well as good visualization of the biliary radicals with no filling defects seen. The cholangiogram catheter was removed and the cystic duct and cystic artery were clipped twice centrally and once laterally and divided laparoscopically between clips with scissors. The gallbladder was removed from the gallbladder fossa using the hook electrocautery. It was placed in a retrieval bag and removed to the midepigastric trocar with no significant fascial extension the abdomen was locally suction irrigated till the effluent was clear and there is no bleeding present. The trochars were removed and the CO2 was released from the abdomen. The skin incisions are closed with 4-0 Monocryl and sterile skin glue. The patient was awakened from anesthesia and transferred to recovery. Postoperative plan Diet as tolerated next line repeat labs tomorrow Discharge home tomorrow Anesthesia: KEYA, local Surgeon / Physician: Guido Nguyen Estimated blood loss: minimal (25 mL) Specimens: other (gallbladder) Condition: stable Disposition: PACU Results - Labs CBC & BMP: 09/24/16 05:08 09/24/16 05:08 Discharge Plan - Discharge Medications No Action Losartan/Hydrochlorothiazide [Losartan-Hctz 100-25 mg Tab] 1 each PO DAILY - Follow Up or Referral - Forms/Instructions
[2016-09-24] MEDS: HYDROmorphone 2 MG/1 ML VIAL IV PRN ×2 (12:00→12:05)
[2016-09-24] MEDS ORDERED: HYDROmorphone 2 MG/1 ML VIAL ONE (12:01)
[2016-09-24] MEDS ORDERED: ONDANSETRON 4 MG/2 ML VIAL IV PRN (12:12)
[2016-09-24] MEDS ORDERED: LACTATED RINGERS 1,000 ML IV ONE (12:49)
[2016-09-24] MEDS ORDERED: DESFLURANE 1 UNIT/15 MINUTE INH ONE (12:49)
[2016-09-24] MEDS ORDERED: fentaNYL 100 MCG/2 ML VIAL ONE (12:49)
[2016-09-24] MEDS ORDERED: MIDAZOLAM 2 MG/2 ML VIAL ONE (12:49)
--- NOTE | 2016-09-24 13:02 | Gastrointestinal Progress Note ---
Assessment and Plan (1) Gallstone pancreatitis Status: Acute Assessment and plan: 09/24-Post op lap rex, intraoperative cholangiogram report pending. LFTs and lipase trending down. Plan and addendum to follow by DR Busch. Current Visit: Yes Gastroenterology - PN: Subj Interval history: CC: Choledocholithiasis Pt is awakening, however still somnolent from surgery. She just returned to room from recovery following laparoscopic cholecystectomy. Intraoperative cholangiogram report not available at this time. Her LFTs and lipase are trending down as well. Abdomen is soft, tender to palpation. ROS: Denies SOB or chest pain Exam (Progress Note) - Constitutional Vitals: Period Temp Pulse Resp BP Sys/Corbett Pulse Ox Last 24 Hr 97.7 F-99.3 F 61-94 16-22 115-160/71-99 95-100 General appearance: normal weight, no acute distress - Head Head exam: Present: normal inspection, normocephalic - Eye Eye exam: Present: other (lids and conjunctiva unremarkable). Absent: scleral icterus - ENT ENT exam: Present: normal exam, normal oropharynx - Neck Neck exam: Present: normal inspection - Respiratory Respiratory exam: Present: clear to auscultation bilaterally. Absent: rales, rhonchi, wheezes - Cardiovascular Cardiovascular exam: Present: regular rate and rhythm. Absent: diastolic murmur , JVD, systolic murmur - GI/Abdominal GI/Abdominal exam: Present: tenderness, soft. Absent: ascites, distended, mass , organomegaly - Extremities Exam Extremities exam: Present: normal inspection, full ROM - Back Exam Back exam: Present: normal inspection - Neurological Exam Neurological exam: Present: alert, altered - Psychiatric Psychiatric exam: Present: normal affect, normal mood - Skin Skin exam: Present: normal color, warm, dry Results - Labs CBC & BMP: 09/24/16 05:08 09/24/16 05:08 Lab Results: I have reviewed the past 24 hour labs
[2016-09-24] MEDS: SODIUM CHLORIDE 0.9% 500 ML IV SCH (13:12)
[2016-09-24] MEDS: MORPHINE 2 MG/1 ML SYRINGE IV PRN ×3 (14:02→21:56)
--- NOTE | 2016-09-24 14:09 | Fluoroscopy Report ---
Referring Physician: Guido Nguyen Exam: FL cholangiogram in surgery Date: September 24, 2016 at 11:09 AM Reason: Abdominal pain, intraoperative cholangiogram Comparison: Gallbladder ultrasound September 21, 2016 Findings: Images of the abdomen were provided after performance of an intraoperative cholangiogram. Fluoroscopy time was 85.6 seconds. Images demonstrate mildly prominent common hepatic and common bile ducts, but no definite biliary stone is identified. The intrahepatic bile ducts appear normal in size. Impression: The common hepatic and common bile ducts are mildly prominent, but no definite biliary stone is identified. PROCEDURE INTERPRETED AT [facility] DEPARTMENT OF RADIOLOGY Final Report Signed by: Dr. Kelechi Zayas
[2016-09-25] MEDS: MORPHINE 2 MG/1 ML SYRINGE IV PRN ×2 (04:55→08:42)
[2016-09-25] MEDS: DEXTROSE 5% NACL 0.45% 1,000 ML IV SCH (04:58)
[2016-09-25 06:14] LABS: Albumin 2.9 G/DL (3.4-5.0); Bilirubin,Total 1.8 MG/DL (0.2-1.0); Calcium 8.6 MG/DL (8.5-10.1); Osmolality,Calculated 280.1 MOS/KG (273-304); Potassium 3.4 MMOL/L (3.5-5.1); Total Protein 6.9 G/DL (6.4-8.3)
[2016-09-25] MEDS: LACTATED RINGERS 1,000 ML IV SCH (06:28)
[2016-09-25] MEDS: LOSARTAN/HCTZ 50-12.5 MG TABLET PO SCH (09:10)
--- NOTE | 2016-09-25 11:27 | Event Note ---
General Surgery Progress Note Chief complaint This patient is a 25-year-old woman admitted with cholecystitis as well as choledocholithiasis and biliary pancreatitis treated with ERCP and sphincterotomy and stone removal followed by laparoscopic cholecystectomy with negative cholangiogram on 09/24/2016 Interval history The patient is having some gas pain but she is tolerating her diet. She hasn't gotten up and walk in the hallway yet. Her labs continued to improve Physical exam Afebrile, normal vital signs Abdominal exam with expected postoperative tenderness with clean incisions Labs Reviewed, improving Assessment and plan Continue diet as tolerated and increase activity Discharge home once tolerating by mouth and pain control
--- NOTE | 2016-09-25 11:48 | Pathology Report from [facility] ---
ACCESSION # : [id number] PATIENT NAME : Mary Lima ORDERING DR : Guido Nguyen MD CLINICAL HX: Cholelithiasis & gallstone pancreatitis POST-OP DX: Same SPECIMEN INFO: Gallbladder GROSS DESCRIPTION: The specimen is received in formalin labeled with the patient 's name and consists of an intact gallbladder measuring 8.0 x 3.0 cm. The serosa is smooth and erythematous. The wall averages 0.3 cm in thickness. The mucosal surface is red-jarvis with mild yellow streaking noted. The lumen contains yellow-brown bile with numerous pale yellow stones seen measuring 4.5 x 3.5 cm in aggregate. [employer] sections submitted in one cassette. DIAGNOSIS FOR MARY LIMA: GALLBLADDER: Chronic cholecystitis. Cholelithiasis. No evidence of malignancy. SERVICE DATE: 09/24/2016 REPORT DATE: 09/25/2016 PATHOLOGIST: Antonio Jenkins III, M.D. MTDD
[2016-09-25] MEDS: oxyCODONE/ACETAMINOPHEN 5-325 MG TABLET PO PRN (20:27)
--- NOTE | 2016-09-26 07:19 | Discharge Summary ---
Hospital Course - Hospital Course Hospital Course: This patient was admitted with biliary pancreatitis with evidence of choledocholithiasis and cholecystitis. She was kept in the hospital on pain medications and nothing by mouth until her pancreatitis resolved she was then taken to the GI lab for ERCP with sphincterotomy and stone removal from her common bile duct. Her pancreatitis continue to improve and she was then taken to the OR for a laparoscopic cholecystectomy on 09/24/2016. She did well after surgery and was kept in the hospital due to some nausea and pain but her repeat labs were all improving and she was ready for discharge on 09/26/2016. She will follow-up in 2 weeks in clinic. Diagnosis - Discharge Diagnosis (1) Cholelithiasis Status: Acute Discharge Plan - Discharge Data Disposition: Disch To Home/Self Care Condition at Discharge: Stable Discharge Diet: advance to your usual diet Activity: no lifting Hygiene: may shower Weight Bearing at Discharge: full weight bearing Driving: not until seen by doctor Contact your physician if you experience:: fever over 101, Difficulty voiding, Redness or swelling, Nausea/Vomiting, Shortness of breath, Bleeding, pain uncontrolled by pain medications - Discharge Medications New Oxycodone HCl/Acetaminophen [Percocet 7.5-325 mg Tablet] 1 each PO Q6H PRN # 45 tablet PRN Reason: Abdominal Pain Continue Losartan/Hydrochlorothiazide [Losartan-Hctz 100-25 mg Tab] 1 each PO DAILY - Follow Up or Referral Follow Up: Guido Nguyen MD [Physician] - 2 Weeks - Forms/Instructions Exam - Constitutional Vitals: Period Temp Pulse Resp BP Sys/Corbett Pulse Ox Last 24 Hr 97.5 F-98.5 F 59-88 17-22 129-149/55-95 95-100 General appearance: no acute distress, morbidly obese - Head Head exam: Present: normal inspection, normocephalic - Eye Eye exam: Present: EOMI Pupils: Present: LILIANE - ENT ENT exam: Present: normal exam - Neck Neck exam: Present: normal inspection - Respiratory Respiratory exam: Present: clear to auscultation bilaterally. Absent: accessory muscle use, chest wall tenderness - Cardiovascular Cardiovascular exam: Present: regular rate and rhythm. Absent: systolic murmur , tachycardia - GI/Abdominal GI/Abdominal exam: Present: tenderness (appropriate post-operative tenderness), soft. Absent: rebound - Extremities Exam Extremities exam: Present: normal inspection, normal capillary refill - Back Exam Back exam: Present: normal inspection - Neurological Exam Neurological exam: Present: alert, oriented X3 - Psychiatric Psychiatric exam: Present: normal affect, normal mood - Skin Skin exam: Present: normal color, warm DS: Provider Date of admission: 09/21/16 16:52 Primary care physician: . No PCP Attending physician on admission: Guido Nguyen MD Consults: 09/21/16 19:59 Consult to Physician [CONS] Routine Comment: biliary pancreatitis Consulting Provider: Chi Busch Person Notified: DR BUSCH Date Notified: 09/22/16 Time Notified: 07:53 Discharging clinician: Guido Nguyen MD Expected date of discharge: 09/26/16
[2016-09-26] MEDS: oxyCODONE/ACETAMINOPHEN 5-325 MG TABLET PO PRN (09:50)
[2016-09-26] MEDS: LOSARTAN/HCTZ 50-12.5 MG TABLET PO SCH (09:50)
[2016-09-26 16:58] VITALS: BP 143/87
== END 2016-09-26 12:06 | disposition home or self-care (01) | DRG 418 ==
LOC: N.ED 12:08 → N.EDINP 16:52 → N.3E 17:55
PROVIDERS: ADMIT Surgery; ATTEND Surgery
PROC: ERCPWSP (ICD-10-PCS; 2016-09-23 12:50)
PROC: LAPCHOL (2016-09-24 10:20)

== ENCOUNTER 2022-01-11 10:50 | Inpatient (IN) ==
[2022-01-11] MEDS ORDERED: BETAMETH SODIUM PHOS/ACETATE 30 MG/5 ML VIAL IM ONE (11:01)
[2022-01-11 11:18] LABS: Basophils % 0.1 % (0.0-0.8); Hematocrit 40.4 VOL% (35.7-47.0); Hemoglobin 13.6 GM/DL (12.0-16.0); Immature Granulocytes % 1.6 %; Immature Granulocytes Absolute 0.26 #; Mean Corpuscular HGB Conc 33.7 GM/DL (32-36); Mean Platelet Volume 10.3 FL (9.6-12.0); Monocytes # 1.3 10*3/uL (0.11-0.8); Monocytes % 7.7 % (1.7-12.7); NRBC # 0.02 10*3/uL; Neutrophils % 78.6 % (38.7-73.9); Platelet Count 311 T/CUMM (130-400); Red Blood Count 4.54 MC/CUMM (3.8-5.5); Red Cell Distribution Width 14.4 % (9.3-17.3); White Blood Count 16.4 T/CUMM (4-12)
[2022-01-11 11:28] LABS: Mucus,Urine Occasional /LPF (Occasional); RBC,Urine 1 /HPF (0-4); Squamous Epithelial Cell,Urine Occasional /HPF (0-10)
[2022-01-11 11:29] LABS: Bilirubin,Urine Negative (Negative); Blood, Urine Negative (Negative); Glucose,Urine (UA) 250 mg/dL (Negative); Ketones,Urine Negative (Negative); Nitrite,Urine Negative (Negative); Protein,Urine Negative (Negative); Urine Appearance Clear (Clear); Urine Color Yellow (Yellow); Urine Urobilinogen 0.2 eU/dL (<2.0); Urine pH 5.5 (4.5-8.0)
[2022-01-11 11:32] LABS: INR 0.9; PT Patient Result 9.7 SECS (10.5-12.0); Partial Thromboplastin Time 30.5 SECS (23.8-32.1)
[2022-01-11 11:37] LABS: Alanine Aminotransferase 21 U/L (13-56); Albumin 3.1 G/DL (3.4-5.0); Alkaline Phosphatase 66 U/L (45-117); Aspartate Amino Transferase 11 U/L (0-37); Bilirubin,Direct < 0.100 MG/DL (0.0-0.20); Blood Urea Nitrogen 8 MG/DL (7-18); Calcium 9.4 MG/DL (8.5-10.1); Carbon Dioxide 21 MMOL/L (21-32); Chloride 107 MMOL/L (98-107); Glucose 134 MG/DL (74-106); Osmolality,Calculated 276.5 MOS/KG (273-304); Potassium 3.6 MMOL/L (3.5-5.1); Sodium 139 MMOL/L (136-145); Total Protein 8.2 G/DL (6.4-8.2); Uric Acid 5.8 MG/DL (2.6-6.0)
[2022-01-11 12:04] LABS: Protein/Creatinine Ratio,Urine 0.2 RATIO
[2022-01-11] MEDS: LABETALOL 200 MG TABLET PO SCH (21:10)
[2022-01-12] MEDS: NIFEdipine 10 MG CAPSULE PO PRN (03:49)
[2022-01-12] MEDS: LABETALOL 200 MG TABLET PO SCH ×3 (09:14→21:06)
[2022-01-12] MEDS: ASPIRIN EC 81 MG TABLET PO SCH (09:14)
[2022-01-12 20:34] LABS: Basophils % 0.2 % (0.0-0.8); Hematocrit 36.1 VOL% (35.7-47.0); Hemoglobin 12.3 GM/DL (12.0-16.0); Immature Granulocytes % 2.2 %; Immature Granulocytes Absolute 0.31 #; Lymphocytes # 2.4 10*3/uL (1.4-4.0); Lymphocytes % 17.2 % (21.3-54.2); Mean Corpuscular HGB Conc 34.1 GM/DL (32-36); Mean Corpuscular Volume 88.5 FL (87-102); Mean Platelet Volume 10.6 FL (9.6-12.0); Monocytes # 1.8 10*3/uL (0.11-0.8); Monocytes % 12.8 % (1.7-12.7); NRBC # 0.02 10*3/uL; Neutrophils % 67.6 % (38.7-73.9); Platelet Count 293 T/CUMM (130-400); Red Blood Count 4.08 MC/CUMM (3.8-5.5); Red Cell Distribution Width 14.6 % (9.3-17.3); White Blood Count 13.9 T/CUMM (4-12)
[2022-01-12 20:35] LABS: Alanine Aminotransferase 19 U/L (13-56); Albumin 2.8 G/DL (3.4-5.0); Alkaline Phosphatase 58 U/L (45-117); Aspartate Amino Transferase 10 U/L (0-37); Bilirubin,Total < 0.39 MG/DL (0.20-1.00); Blood Urea Nitrogen 13 MG/DL (7-18); Calcium 8.6 MG/DL (8.5-10.1); Carbon Dioxide 25 MMOL/L (21-32); Chloride 108 MMOL/L (98-107); Glucose 123 MG/DL (74-106); Osmolality,Calculated 279.4 MOS/KG (273-304); Potassium 3.6 MMOL/L (3.5-5.1); Sodium 140 MMOL/L (136-145); Total Protein 7.2 G/DL (6.4-8.2)
[2022-01-13] MEDS: ASPIRIN EC 81 MG TABLET PO SCH (08:59)
[2022-01-13] MEDS: LABETALOL 200 MG TABLET PO SCH ×3 (08:59→20:01)
[2022-01-14] MEDS: NIFEdipine 10 MG CAPSULE PO PRN (04:58)
[2022-01-14] MEDS ORDERED: LABETALOL 200 MG TABLET PO SCH (09:00)
[2022-01-14] MEDS: ASPIRIN EC 81 MG TABLET PO SCH (09:02)
[2022-01-14] MEDS: ACETAMINOPHEN 500 MG TABLET PO PRN (11:26)
[2022-01-14] MEDS: hydrALAZINE 20 MG/1 ML VIAL IV PRN ×2 (12:42→22:53)
[2022-01-14] MEDS: LABETALOL 200 MG TABLET PO SCH (20:47)
[2022-01-15] MEDS: LABETALOL 200 MG TABLET PO SCH ×3 (04:44→20:34)
[2022-01-15] MEDS ORDERED: CLINDAMYCIN INJ 900 MG/50 ML PREMIX IV ONE (07:36)
[2022-01-15] MEDS ORDERED: FAMOTIDINE 20 MG/2 ML VIAL IV ONE (07:36)
[2022-01-15] MEDS ORDERED: OXYTOCIN/LR 20 UNIT/1,000 ML BAG IV ONE ×2 (07:36→13:43)
[2022-01-15] MEDS ORDERED: TRANEXAMIC ACID 1,000 MG in SODIUM CHLORIDE 0.9% 100 ML IV PRN (07:36)
[2022-01-15] MEDS ORDERED: miSOPROStoL 200 MCG TABLET RECTAL PRN (07:36)
[2022-01-15] MEDS ORDERED: CARBOPROST TROMETHAMINE 250 MCG/ML AMP IM PRN (07:36)
[2022-01-15] MEDS ORDERED: CITRIC ACID/SODIUM CITRATE 30 ML UDCUP PO ONE (07:36)
[2022-01-15] MEDS ORDERED: METHYLERGONOVINE 0.2 MG/1 ML AMP IM PRN (07:36)
[2022-01-15] MEDS ORDERED: LACTATED RINGERS 1,000 ML IV SCH ×2 (08:00→14:00)
[2022-01-15 08:50] LABS: INR 0.9; PT Patient Result 9.7 SECS (10.5-12.0); Partial Thromboplastin Time 27.5 SECS (23.8-32.1)
[2022-01-15 09:01] LABS: Albumin 2.7 G/DL (3.4-5.0); Basophils # 0.1 10*3/uL (0.0-0.2); Basophils % 0.4 % (0.0-0.8); Bilirubin,Direct 0.1 MG/DL (0.0-0.20); Bilirubin,Total 0.5 MG/DL (0.20-1.00); Calcium 9.5 MG/DL (8.5-10.1); Eosinophils % 0.2 % (0.00-10.9); Hematocrit 38.7 VOL% (35.7-47.0); Hemoglobin 12.9 GM/DL (12.0-16.0); Immature Granulocytes % 1.7 %; Lymphocytes # 3.3 10*3/uL (1.4-4.0); Lymphocytes % 28.8 % (21.3-54.2); Mean Corpuscular HGB Conc 33.3 GM/DL (32-36); Mean Corpuscular Volume 89.6 FL (87-102); Mean Platelet Volume 10.5 FL (9.6-12.0); Monocytes # 1.4 10*3/uL (0.11-0.8); Monocytes % 12.5 % (1.7-12.7); NRBC # 0.03 10*3/uL; Neutrophils % 56.4 % (38.7-73.9); Osmolality,Calculated 274.5 MOS/KG (273-304); Platelet Count 271 T/CUMM (130-400); Potassium 3.2 MMOL/L (3.5-5.1); Red Blood Count 4.32 MC/CUMM (3.8-5.5); Red Cell Distribution Width 14.6 % (9.3-17.3); Total Protein 7.3 G/DL (6.4-8.2); Uric Acid 5.8 MG/DL (2.6-6.0); White Blood Count 11.5 T/CUMM (4-12)
[2022-01-15] MEDS ORDERED: buprenorphine HCL 0.3 MG/ML VIAL ONE (11:22)
[2022-01-15] MEDS ORDERED: BUPIVACAINE SPINAL 0.75% 2 ML AMP SPINAL ONE (11:28)
[2022-01-15] MEDS ORDERED: PHENYLEPHRINE 1 MG/10 ML SYRINGE IV ONE (11:28)
[2022-01-15] MEDS ORDERED: ONDANSETRON 4 MG/2 ML VIAL ONE (11:28)
[2022-01-15] MEDS ORDERED: ACETAMINOPHEN INJ 1,000 MG/100 ML VIAL IV ONE (13:07)
[2022-01-15] MEDS ORDERED: fentaNYL 100 MCG/2 ML VIAL ONE (13:07)
[2022-01-15 13:08] LABS: Cord Arterial Blood HCO3 23.4 MMOL/L
[2022-01-15 13:12] LABS: Cord Venous Blood HCO3 24.4 MMOL/L; Cord Venous Blood PCO2 52.3 MMHG; Cord Venous Blood PO2 24.8
[2022-01-15 13:22] LABS: Bacteria,Urine Occasional /HPF (Few); Bilirubin,Urine Negative (Negative); Blood, Urine Negative (Negative); Glucose,Urine (UA) Negative (Negative); Ketones,Urine Negative (Negative); Mucus,Urine Occasional /LPF (Occasional); Nitrite,Urine Negative (Negative); Protein,Urine Negative (Negative); RBC,Urine <1 /HPF (0-4); Urine Appearance Clear (Clear); Urine Color Yellow (Yellow); Urine Urobilinogen 0.2 eU/dL (<2.0); Urine pH 6.5 (4.5-8.0)
[2022-01-15] MEDS ORDERED: ONDANSETRON 4 MG/2 ML VIAL IV PRN (13:43)
[2022-01-15] MEDS ORDERED: ACETAMINOPHEN 325 MG TABLET PO PRN (13:43)
[2022-01-15] MEDS ORDERED: RHO(D) IMMUNE GLOBULIN 300 MCG SYRINGE IM ONE (13:43)
[2022-01-15] MEDS: ASPIRIN EC 81 MG TABLET PO SCH (15:04)
[2022-01-15 15:38] LABS: Basophils % 0.2 % (0.0-0.8); Eosinophils % 0.1 % (0.00-10.9); Hematocrit 33.9 VOL% (35.7-47.0); Hemoglobin 11.1 GM/DL (12.0-16.0); Immature Granulocytes % 1.2 %; Lymphocytes # 3.2 10*3/uL (1.4-4.0); Mean Corpuscular HGB Conc 32.7 GM/DL (32-36); Mean Corpuscular Volume 89.7 FL (87-102); Mean Platelet Volume 10.2 FL (9.6-12.0); Monocytes # 1.5 10*3/uL (0.11-0.8); Monocytes % 8.8 % (1.7-12.7); NRBC # 0.03 10*3/uL; Neutrophils % 70.7 % (38.7-73.9); Platelet Count 291 T/CUMM (130-400); Red Blood Count 3.78 MC/CUMM (3.8-5.5); Red Cell Distribution Width 14.5 % (9.3-17.3); White Blood Count 16.9 T/CUMM (4-12)
[2022-01-15] MEDS ORDERED: diphenhydrAMINE 2% CREAM 28 GM TUBE TOP PRN (17:32)
[2022-01-15] MEDS: CLINDAMYCIN INJ 600 MG/50 ML PREMIX IV SCH (19:38)
[2022-01-15] MEDS ORDERED: POTASSIUM CHLORIDE 20 MEQ TABLET PO PRN (20:11)
[2022-01-15] MEDS: IBUPROFEN 800 MG TABLET PO PRN (21:40)
[2022-01-15] MEDS: DOCUSATE SODIUM 100 MG CAPSULE PO SCH (21:43)
[2022-01-16] MEDS: LABETALOL 200 MG TABLET PO SCH ×2 (04:38→12:35)
[2022-01-16] MEDS: CLINDAMYCIN INJ 600 MG/50 ML PREMIX IV SCH (05:23)
[2022-01-16 06:04] LABS: Basophils % 0.1 % (0.0-0.8); Eosinophils % 0.2 % (0.00-10.9); Hematocrit 32.6 VOL% (35.7-47.0); Hemoglobin 10.7 GM/DL (12.0-16.0); Immature Granulocytes % 0.8 %; Lymphocytes # 2.4 10*3/uL (1.4-4.0); Lymphocytes % 17.7 % (21.3-54.2); Mean Corpuscular HGB Conc 32.8 GM/DL (32-36); Mean Corpuscular Volume 90.8 FL (87-102); Mean Platelet Volume 10.7 FL (9.6-12.0); Monocytes # 1.6 10*3/uL (0.11-0.8); Neutrophils % 69.2 % (38.7-73.9); Platelet Count 242 T/CUMM (130-400); Red Blood Count 3.59 MC/CUMM (3.8-5.5); Red Cell Distribution Width 14.6 % (9.3-17.3); White Blood Count 13.3 T/CUMM (4-12)
[2022-01-16] MEDS: MULTIVITAMIN (PRENATAL) TABLET PO SCH (08:36)
[2022-01-16] MEDS: DOCUSATE SODIUM 100 MG CAPSULE PO SCH ×2 (08:36→21:26)
[2022-01-16] MEDS: ASPIRIN EC 81 MG TABLET PO SCH (08:36)
[2022-01-16] MEDS: MAGNESIUM HYDROXIDE SUSP 30 ML UDCUP PO PRN ×2 (08:36→21:26)
[2022-01-16] MEDS: IBUPROFEN 800 MG TABLET PO PRN ×2 (08:39→21:49)
[2022-01-16] MEDS: ENOXAPARIN 40 MG/0.4 ML SYRINGE SUBCUT SCH (11:52)
[2022-01-16] MEDS: SIMETHICONE CHEW 80 MG TABLET PO PRN ×2 (17:50→23:36)
[2022-01-16 17:55] LABS: Hematocrit 30.6 VOL% (35.7-47.0); Hemoglobin 10.2 GM/DL (12.0-16.0)
[2022-01-16] MEDS ORDERED: oxyCODONE/ACETAMINOPHEN 5-325 MG TABLET PO PRN ×2 (23:42→23:43)
[2022-01-17] MEDS ORDERED: MAGNESIUM CITRATE 300 ML BOTTLE PO ONE (00:45)
[2022-01-17] MEDS: oxyCODONE/ACETAMINOPHEN 5-325 MG TABLET PO PRN ×3 (01:56→20:07)
[2022-01-17] MEDS: ASPIRIN EC 81 MG TABLET PO SCH (09:01)
[2022-01-17] MEDS: MAGNESIUM HYDROXIDE SUSP 30 ML UDCUP PO PRN ×2 (09:02→20:04)
[2022-01-17] MEDS: MULTIVITAMIN (PRENATAL) TABLET PO SCH (09:02)
[2022-01-17] MEDS: DOCUSATE SODIUM 100 MG CAPSULE PO SCH ×2 (09:02→20:04)
[2022-01-17] MEDS: SIMETHICONE CHEW 80 MG TABLET PO PRN (09:02)
[2022-01-17] MEDS: ENOXAPARIN 40 MG/0.4 ML SYRINGE SUBCUT SCH (11:40)
[2022-01-17] MEDS: IBUPROFEN 800 MG TABLET PO PRN ×2 (14:28→23:00)
[2022-01-17 16:10] LABS: Basophils % 0.1 % (0.0-0.8); Eosinophils % 0.1 % (0.00-10.9); Hematocrit 31.8 VOL% (35.7-47.0); Hemoglobin 10.6 GM/DL (12.0-16.0); Immature Granulocytes % 1.1 %; Immature Granulocytes Absolute 0.18 #; Lymphocytes # 1.2 10*3/uL (1.4-4.0); Lymphocytes % 7.2 % (21.3-54.2); Mean Corpuscular HGB Conc 33.3 GM/DL (32-36); Mean Corpuscular Volume 90.1 FL (87-102); Mean Platelet Volume 10.2 FL (9.6-12.0); Monocytes # 1.4 10*3/uL (0.11-0.8); Monocytes % 8.8 % (1.7-12.7); Neutrophils % 82.7 % (38.7-73.9); Platelet Count 268 T/CUMM (130-400); Red Blood Count 3.53 MC/CUMM (3.8-5.5); Red Cell Distribution Width 14.9 % (9.3-17.3)
[2022-01-17 18:46] LABS: Urine Appearance Clear (Clear); Urine Color Yellow (Yellow); Urine pH 5.5 (4.5-8.0)
[2022-01-17 18:47] LABS: Bilirubin,Urine Negative (Negative); Blood, Urine Large mg/dL (Negative); Glucose,Urine (UA) Negative (Negative); Ketones,Urine 40 mg/dL (Negative); Nitrite,Urine Negative (Negative); Protein,Urine 100 mg/dL (Negative); Urine Urobilinogen 0.2 eU/dL (<2.0)
[2022-01-17 18:50] LABS: Bacteria,Urine Occasional /HPF (Few); RBC,Urine 268 /HPF (0-4); Squamous Epithelial Cell,Urine Moderate /HPF (0-10)
[2022-01-17] MEDS: cefTRIAXone 1,000 MG in SODIUM CHLORIDE 0.9% 100 ML IV SCH (19:50)
[2022-01-17] MEDS: ALBUTEROL/IPRATROPIUM 3 ML NEB RESP TX SCH ×2 (20:04→23:39)
[2022-01-17] MEDS: LABETALOL 200 MG TABLET PO SCH (22:59)
[2022-01-18] MEDS: SIMETHICONE CHEW 80 MG TABLET PO PRN ×2 (00:18→09:32)
[2022-01-18] MEDS ORDERED: POLYETHYLENE GLYCOL POWDER 17 GM PACK PO PRN (01:47)
[2022-01-18] MEDS: oxyCODONE/ACETAMINOPHEN 5-325 MG TABLET PO PRN ×2 (01:58→22:52)
[2022-01-18] MEDS: ALBUTEROL/IPRATROPIUM 3 ML NEB RESP TX SCH ×6 (03:31→23:20)
[2022-01-18] MEDS: IBUPROFEN 800 MG TABLET PO PRN ×2 (06:58→16:45)
[2022-01-18] MEDS: ASPIRIN EC 81 MG TABLET PO SCH (09:31)
[2022-01-18] MEDS: DOCUSATE SODIUM 100 MG CAPSULE PO SCH ×2 (09:32→21:41)
[2022-01-18] MEDS: MAGNESIUM HYDROXIDE SUSP 30 ML UDCUP PO PRN (09:32)
[2022-01-18] MEDS: LABETALOL 200 MG TABLET PO SCH ×2 (09:32→21:10)
[2022-01-18] MEDS: MULTIVITAMIN (PRENATAL) TABLET PO SCH (09:32)
[2022-01-18] MEDS: ACETAMINOPHEN 500 MG TABLET PO PRN (09:32)
[2022-01-18] MEDS: SERTRALINE 50 MG TABLET PO SCH (09:48)
[2022-01-18] MEDS: ENOXAPARIN 40 MG/0.4 ML SYRINGE SUBCUT SCH (10:45)
[2022-01-18] MEDS: cefTRIAXone 1,000 MG in SODIUM CHLORIDE 0.9% 100 ML IV SCH (20:00)
[2022-01-18] MEDS ORDERED: SERTRALINE 50 MG TABLET PO SCH (21:00)
[2022-01-19] MEDS: ALBUTEROL/IPRATROPIUM 3 ML NEB RESP TX SCH ×5 (02:19→20:41)
[2022-01-19 05:41] LABS: Basophils % 0.1 % (0.0-0.8); Eosinophils # 0.1 10*3/uL (0.0-0.87); Eosinophils % 0.6 % (0.00-10.9); Hematocrit 27.9 VOL% (35.7-47.0); Hemoglobin 9.2 GM/DL (12.0-16.0); Immature Granulocytes % 1.1 %; Immature Granulocytes Absolute 0.15 #; Lymphocytes # 1.6 10*3/uL (1.4-4.0); Lymphocytes % 11.4 % (21.3-54.2); Mean Corpuscular Volume 91.8 FL (87-102); Mean Platelet Volume 11.8 FL (9.6-12.0); Monocytes # 1.9 10*3/uL (0.11-0.8); Monocytes % 13.5 % (1.7-12.7); Neutrophils % 73.3 % (38.7-73.9); Platelet Count 229 T/CUMM (130-400); Red Blood Count 3.04 MC/CUMM (3.8-5.5); Red Cell Distribution Width 14.8 % (9.3-17.3); White Blood Count 13.9 T/CUMM (4-12)
[2022-01-19] MEDS: IBUPROFEN 800 MG TABLET PO PRN ×3 (08:49→22:49)
[2022-01-19] MEDS: SIMETHICONE CHEW 80 MG TABLET PO PRN ×2 (08:51→21:01)
[2022-01-19] MEDS: DOCUSATE SODIUM 100 MG CAPSULE PO SCH ×2 (08:51→21:01)
[2022-01-19] MEDS: SERTRALINE 50 MG TABLET PO SCH (08:51)
[2022-01-19] MEDS: oxyCODONE/ACETAMINOPHEN 5-325 MG TABLET PO PRN ×3 (08:51→19:46)
[2022-01-19] MEDS: MULTIVITAMIN (PRENATAL) TABLET PO SCH (08:51)
[2022-01-19] MEDS: ASPIRIN EC 81 MG TABLET PO SCH (08:52)
[2022-01-19] MEDS: LABETALOL 200 MG TABLET PO SCH ×2 (08:52→21:00)
[2022-01-19] MEDS: ENOXAPARIN 40 MG/0.4 ML SYRINGE SUBCUT SCH (13:36)
[2022-01-19] MEDS: MAGNESIUM HYDROXIDE SUSP 30 ML UDCUP PO PRN (21:01)
[2022-01-19] MEDS: cefTRIAXone 1,000 MG in SODIUM CHLORIDE 0.9% 100 ML IV SCH (21:05)
[2022-01-20] MEDS: oxyCODONE/ACETAMINOPHEN 5-325 MG TABLET PO PRN (06:54)
[2022-01-20] MEDS: IBUPROFEN 800 MG TABLET PO PRN (06:55)
[2022-01-20] MEDS: SIMETHICONE CHEW 80 MG TABLET PO PRN ×2 (09:09→09:13)
[2022-01-20] MEDS: MULTIVITAMIN (PRENATAL) TABLET PO SCH (09:10)
[2022-01-20] MEDS: SERTRALINE 50 MG TABLET PO SCH (09:10)
[2022-01-20] MEDS: ASPIRIN EC 81 MG TABLET PO SCH (09:10)
[2022-01-20] MEDS: DOCUSATE SODIUM 100 MG CAPSULE PO SCH (09:12)
[2022-01-20 12:28] VITALS: BP 143/66
[2022-01-20] MEDS: LABETALOL 200 MG TABLET PO SCH (13:07)
== END 2022-01-20 12:50 | disposition home or self-care (01) | DRG 786 ==
LOC: N.LDOUT 10:50 → N.LD 10:50 → N.OB 01-15 16:48
PROVIDERS: ADMIT Obstetrics & Gynecology; ATTEND Obstetrics & Gynecology
PROC: LDCSECT (ICD-10-PCS; 2022-01-15 11:00)

== ENCOUNTER 2022-01-23 20:12 | Inpatient (IN) ==
[2022-01-23] MEDS: DEXTROSE 5% LACTATED RINGERS 1,000 ML IV SCH (21:47)
[2022-01-23 22:03] LABS: Basophils % 0.2 % (0.0-0.8); Eosinophils % 0.1 % (0.00-10.9); Hematocrit 28.5 VOL% (35.7-47.0); Hemoglobin 9.5 GM/DL (12.0-16.0); Immature Granulocytes % 1.7 %; Lymphocytes # 1.8 10*3/uL (1.4-4.0); Lymphocytes % 10.4 % (21.3-54.2); Mean Corpuscular HGB Conc 33.3 GM/DL (32-36); Mean Corpuscular Volume 88.8 FL (87-102); Mean Platelet Volume 9.2 FL (9.6-12.0); Monocytes # 0.9 10*3/uL (0.11-0.8); Monocytes % 5.2 % (1.7-12.7); Neutrophils % 82.4 % (38.7-73.9); Platelet Count 487 T/CUMM (130-400); Red Blood Count 3.21 MC/CUMM (3.8-5.5); Red Cell Distribution Width 14.8 % (9.3-17.3); White Blood Count 17.7 T/CUMM (4-12)
[2022-01-23 22:28] LABS: Bilirubin,Total 0.4 MG/DL (0.20-1.00); Calcium 8.4 MG/DL (8.5-10.1); Osmolality,Calculated 270.8 MOS/KG (273-304); Potassium 3.3 MMOL/L (3.5-5.1); Total Protein 6.7 G/DL (6.4-8.2)
[2022-01-23] MEDS: cefTRIAXone 1,000 MG in SODIUM CHLORIDE 0.9% 100 ML IV SCH (22:57)
[2022-01-23] MEDS: POTASSIUM CHLORIDE 20 MEQ TABLET PO PRN (23:37)
[2022-01-23] MEDS: oxyCODONE/ACETAMINOPHEN 5-325 MG TABLET PO PRN (23:37)
[2022-01-24] MEDS: POTASSIUM CHLORIDE 20 MEQ TABLET PO PRN ×2 (01:46→03:45)
[2022-01-24] MEDS: DEXTROSE 5% LACTATED RINGERS 1,000 ML IV SCH (06:12)
[2022-01-24] MEDS ORDERED: SEVOFLURANE 1 UNIT/15 MINUTE INH ONE (10:01)
[2022-01-24] MEDS ORDERED: SUCCINYLCHOLINE 200 MG/10 ML VIAL ONE (10:01)
[2022-01-24] MEDS ORDERED: ROCURONIUM 50 MG/5 ML VIAL IV ONE (10:01)
[2022-01-24] MEDS ORDERED: fentaNYL 250 MCG/5 ML VIAL ONE (10:01)
[2022-01-24] MEDS ORDERED: propofoL 200 MG/20 ML VIAL IV ONE (10:01)
[2022-01-24] MEDS ORDERED: LIDOCAINE 2% 5 ML VIAL ONE (10:01)
[2022-01-24] MEDS ORDERED: MIDAZOLAM 2 MG/2 ML VIAL ONE (10:01)
[2022-01-24] MEDS ORDERED: ONDANSETRON 4 MG/2 ML VIAL ONE (10:01)
[2022-01-24] MEDS: LACTATED RINGERS 1,000 ML IV SCH ×2 (10:04→16:57)
[2022-01-24] MEDS ORDERED: NEOSTIGMINE 10 MG/10 ML VIAL ONE (11:26)
[2022-01-24] MEDS ORDERED: GLYCOPYRROLATE 0.4 MG/2 ML VIAL ONE (11:26)
[2022-01-24] MEDS ORDERED: HYDROmorphone 1 MG/1 ML SYRINGE ONE (11:39)
[2022-01-24] MEDS ORDERED: SUGAMMADEX 200 MG/2 ML VIAL IV ONE (11:50)
[2022-01-24 12:06] LABS: Mucus,Urine Occasional /LPF (Occasional); RBC,Urine 2 /HPF (0-4); Squamous Epithelial Cell,Urine Occasional /HPF (0-10); Urine Appearance Clear (Clear); Urine Color Yellow (Yellow)
[2022-01-24 12:07] LABS: Bilirubin,Urine Negative (Negative); Blood, Urine Trace mg/dL (Negative); Glucose,Urine (UA) Negative (Negative); Ketones,Urine Negative (Negative); Nitrite,Urine Negative (Negative); Protein,Urine 30 mg/dL (Negative); Urine Urobilinogen 0.2 eU/dL (<2.0)
[2022-01-24] MEDS ORDERED: BENZOCAINE/MENTHOL LOZENGE 18/BOX PO PRN (12:08)
[2022-01-24] MEDS ORDERED: MAGNESIUM HYDROXIDE SUSP 30 ML UDCUP PO PRN (12:08)
[2022-01-24] MEDS ORDERED: IBUPROFEN 800 MG TABLET PO PRN (12:08)
[2022-01-24] MEDS ORDERED: ACETAMINOPHEN 325 MG TABLET PO PRN (12:08)
[2022-01-24] MEDS ORDERED: BISACODYL 10 MG SUPP RECTAL PRN (12:08)
[2022-01-24] MEDS ORDERED: ONDANSETRON 4 MG/2 ML VIAL IV PRN (12:08)
[2022-01-24] MEDS ORDERED: LACTATED RINGERS 1,000 ML IV SCH (12:30)
[2022-01-24] MEDS ORDERED: HYDROmorphone 1 MG/1 ML SYRINGE IV PRN (13:00)
[2022-01-24] MEDS ORDERED: KETOROLAC 30 MG/1 ML VIAL IV PRN (13:01)
[2022-01-24] MEDS: DOXYCYCLINE HYCLATE INJ 100 MG in SODIUM CHLORIDE 0.9% 100 ML IV SCH ×2 (13:16→23:46)
[2022-01-24] MEDS: oxyCODONE/ACETAMINOPHEN 5-325 MG TABLET PO PRN ×2 (14:12→23:50)
[2022-01-24] MEDS: metroNIDAZOLE INJ 500 MG/100 ML PREMIX IV SCH (14:24)
[2022-01-24] MEDS: cefTRIAXone 1,000 MG in SODIUM CHLORIDE 0.9% 100 ML IV SCH (22:20)
[2022-01-25] MEDS: metroNIDAZOLE INJ 500 MG/100 ML PREMIX IV SCH ×2 (00:50→14:12)
[2022-01-25] MEDS: LACTATED RINGERS 1,000 ML IV SCH ×2 (05:03→20:21)
[2022-01-25 06:18] LABS: Basophils % 0.2 % (0.0-0.8); Eosinophils # 0.1 10*3/uL (0.0-0.87); Eosinophils % 0.4 % (0.00-10.9); Hematocrit 25.4 VOL% (35.7-47.0); Hemoglobin 8.3 GM/DL (12.0-16.0); Immature Granulocytes % 2.3 %; Immature Granulocytes Absolute 0.44 #; Lymphocytes % 10.8 % (21.3-54.2); Mean Corpuscular HGB Conc 32.7 GM/DL (32-36); Mean Corpuscular Volume 90.7 FL (87-102); Mean Platelet Volume 9.4 FL (9.6-12.0); Monocytes # 1.1 10*3/uL (0.11-0.8); Neutrophils % 80.3 % (38.7-73.9); Platelet Count 478 T/CUMM (130-400); Red Cell Distribution Width 15.2 % (9.3-17.3); White Blood Count 18.9 T/CUMM (4-12)
[2022-01-25 06:42] LABS: Band Neutrophils 9 % (0-10); Lymphocytes 10 % (20-55); Microcytosis Slight; Platelet Estimate Increased; Total Cells Counted 100
[2022-01-25] MEDS: ENOXAPARIN 40 MG/0.4 ML SYRINGE SUBCUT SCH (07:01)
[2022-01-25] MEDS: DOCUSATE SODIUM 100 MG CAPSULE PO PRN (07:33)
[2022-01-25] MEDS: oxyCODONE/ACETAMINOPHEN 5-325 MG TABLET PO PRN ×4 (07:33→22:31)
[2022-01-25] MEDS: DOXYCYCLINE HYCLATE INJ 100 MG in SODIUM CHLORIDE 0.9% 100 ML IV SCH (13:03)
[2022-01-25] MEDS: metroNIDAZOLE 500 MG TABLET PO SCH (22:27)
[2022-01-25] MEDS: CEFUROXIME 500 MG TABLET PO SCH (22:27)
[2022-01-25] MEDS: DOXYCYCLINE HYCLATE 100 MG CAPSULE PO SCH (22:27)
[2022-01-26] MEDS: ENOXAPARIN 40 MG/0.4 ML SYRINGE SUBCUT SCH (06:10)
[2022-01-26] MEDS: metroNIDAZOLE 500 MG TABLET PO SCH (09:01)
[2022-01-26] MEDS: DOCUSATE SODIUM 100 MG CAPSULE PO PRN (09:02)
[2022-01-26] MEDS: CEFUROXIME 500 MG TABLET PO SCH (09:02)
[2022-01-26] MEDS: DOXYCYCLINE HYCLATE 100 MG CAPSULE PO SCH (09:02)
[2022-01-26] MEDS: oxyCODONE/ACETAMINOPHEN 5-325 MG TABLET PO PRN (09:06)
[2022-01-26 14:19] VITALS: BP 141/67
== END 2022-01-26 16:20 | disposition home or self-care (01) | DRG 776 ==
LOC: N.OB
PROVIDERS: ADMIT Obstetrics & Gynecology; ATTEND Obstetrics & Gynecology